=== PATIENT | male | born 1980 | race Caucasian/White ===

== ENCOUNTER 2021-02-09 15:53 | Emergency (ER) | payer OTHER ==
[2021-02-10 00:09] LABS: SARS-CoV-2 PCR by NAA Not Detected (NotDetected)
== END 2021-02-09 18:37 | disposition home or self-care (01) ==
LOC: CSHERS 15:53
DX: J20.9 Acute bronchitis, unspecified (principal); Z20.822 Contact with and (suspected) exposure to COVID-19; F17.210 Nicotine dependence, cigarettes, uncomplicated
CPT/HCPCS: 71045; U0003; U0005

== ENCOUNTER 2021-09-08 20:53 | Emergency (ER) | payer OTHER | END 2021-09-09 01:59 | disposition left against medical advice (07) | LOC: CSHERS 20:53 | DX: Z53.21 Procedure and treatment not carried out due to patient leaving prior to being seen by health care provider (principal) ==